=== PATIENT | female | born 1975 | race Caucasian/White ===

== ENCOUNTER 2018-11-06 03:20 | Emergency (ER) | payer BC ==
[2018-11-06] MEDS: predniSONE 20 MG Tab PO ONE (03:58)
[2018-11-06] MEDS: Cephalexin 250 MG Cap PO ONE (03:59)
--- NOTE | 2018-11-06 04:03 | EDM.PDOC ---
ED HPI GENERAL MEDICAL PROBLEM - General Chief Complaint: General Stated Complaint: swelling/redness to face , neck Time Seen by Provider: 11/06/18 03:35 Source of Information: Reports: Patient History Limitations: Reports: No Limitations - History of Present Illness INITIAL COMMENTS - FREE TEXT/NARRATIVE: Patient presents with rash and swelling across nose and cheeks as well as tenderness in neck lymph nodes. This started yesterday morning. This morning the rash seems to be spreading laterally on both cheeks and getting more puffy through bridge of nose. She denies fever or sinus problems. No sore throat. She has Crohn's but denies Lupus. 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 She is on Humira for Crohns Treatments [employer]: Reports: NSAIDS - Related Data Allergies Allergy/AdvReac Type Severity Reaction Status Date / Time No Known Drug Allergies Allergy Cannot Verified 11/06/18 03:22 Remember Home Meds: Home Meds Acyclovir 400 mg PO DAILY 11/06/18 [History] Adalimumab [Humira] 20 mg SQ Q14D 11/06/18 [History] Controll Pill 1 tab PO DAILY 11/06/18 [History] Lisinopril/Hydrochlorothiazide [Lisinopril-HCTZ 10-12.5 MG] 10 - 12.5 mg PO DAILY 11/06/18 [History] ED ROS GENERAL - Review of Systems Review Of Systems: See Below Constitutional: Denies: Fever, Chills, Malaise, Weakness HEENT: Denies: Ear Discharge, Ear Pain, Eye Discharge, Eye Pain, Sinus Problem, Throat Pain, Vision Change Respiratory: Denies: Shortness of Breath, Cough Cardiovascular: Denies: Chest Pain, Lightheadedness, Syncope Endocrine: Reports: No Symptoms GI/Abdominal: Denies: Abdominal Pain, Difficulty Swallowing : Reports: No Symptoms Musculoskeletal: Reports: No Symptoms Skin: Reports: Rash, Erythema, Other (There is a significant rash across upper cheeks and nose with moderate swelling; similar to malar rash except this is more prominent on nose). Denies: Cyanosis, Jaundice, Mottled, Pallor, Diaphoresis Neurological: Denies: Confusion, Dizziness, Headache Psychiatric: Denies: Agitation, Anxiety, Confusion ED EXAM, GENERAL - Physical Exam Exam: See Below Exam Limited By: No Limitations General Appearance: Alert, WD/WN, No Apparent Distress Eye Exam: Bilateral Eye: EOMI, Normal Inspection, PERRL Ears: Normal External Exam, Normal Canal, Hearing Grossly Normal, Normal TMs Nose: Normal Mucosa, No Blood, Other (external nose has erythema and swelling that extends across both cheeks symmetrically; cannot ruleout cellulitis but more consistent with inflammatory reaction in appearance) Throat/Mouth: Normal Inspection, Normal Lips, Normal Teeth, Normal Gums, Normal Oropharynx, Normal Voice, No Airway Compromise Head: Atraumatic, Normocephalic, Facial Swelling (nose and upper cheeks; tender to palpation. Not involving eyes and eyelids). No: Sinus Tenderness Neck: Lymphadenopathy (L), Lymphadenopathy (R) (with bilat mild fulness) Respiratory/Chest: No Respiratory Distress, Lungs Clear, Normal Breath Sounds, No Accessory Muscle Use Cardiovascular: Regular Rate, Rhythm, No Murmur Back Exam: Normal Inspection, Full Range of Motion. No: CVA Tenderness (L), CVA Tenderness (R) Extremities: Normal Inspection, Normal Range of Motion Neurological: Alert, Oriented, Normal Cognition, No Motor/Sensory Deficits Psychiatric: Normal Affect, Normal Mood Skin Exam: Warm, Dry, Intact, Normal Color, No Rash (except face) Course - Vital Signs Last Recorded V/S: Last Vital Signs Temp 97.4 F 11/06/18 03:20 Pulse 74 11/06/18 03:20 Resp 18 11/06/18 03:20 BP 173/97 H 11/06/18 03:20 Pulse Ox 98 11/06/18 03:20 - Orders/Labs/Meds Meds: Medications Discontinued Medications Generic Name Dose Route Start Last Admin Trade Name Mohsenq PRN Reason Stop Dose Admin Cephalexin 500 mg 11/06/18 03:51 Keflex PO 11/06/18 03:52 ONETIME ONE Doxycycline Hyclate 100 mg 11/06/18 03:46 Vibramycin PO 11/06/18 03:47 ONETIME ONE Prednisone 60 mg 11/06/18 03:46 Prednisone PO 11/06/18 03:47 ONETIME ONE - Re-Assessments/Exams Free Text/Narrative Re-Assessment/Exam: 11/06/18 04:03 Discussed findings and treatment plan with patient. She will see CEDRIC Cervantes at 10:40 for recheck since the appointment was already made and can confirm it isn't getting worse. Will treat empirically to cover possible cellulitis with MRSA as well as inflammatory response. Patient took first doses of Prednisone, Doxycycline and Cephalexin in ER and discharged to home in stable condition. Departure - Departure Time of Disposition: 03:55 Disposition: Home, Self-Care 01 Condition: Good Clinical Impression: Facial swelling, Facial rash, Lymphadenopathy of head and neck - Discharge Information Referrals: Catia Fitzgerald PA-C [Primary Care Provider] - Additional Instructions: 1. Drink 8 cups of water daily. 2. Take the Prednisone and antibiotics as directed. 3. Recheck with your PCP in 6-7 hours as scheduled.
== END 2018-11-06 04:07 | disposition home or self-care (01) ==
LOC: KA.ED 03:20
DX: R21 Rash and other nonspecific skin eruption (principal); R59.0 Localized enlarged lymph nodes
CPT/HCPCS: 99283; A9270-GY